=== PATIENT | female | born 1965 | race Caucasian/White ===

== ENCOUNTER → 2018-02-11 | Outpatient (CLI) | payer BC ==
--- NOTE | 2018-02-12 10:23 | MM ---
Reason for exam: screening (asymptomatic). Last mammogram was performed 1 year and 5 months ago. History: Patient has history of high-risk lesion on a previous biopsy at age 43 and is nulliparous. Family history of breast cancer in paternal aunt and breast cancer in paternal grandmother. Cancelled Right Mammotome of the right breast, May 11, 2011. Benign left breast needle localization of the left breast, July 27, 2009. High risk left mammotome panel of the left breast, July 13, 2009. High risk US left guided VAD of the left breast, July 13, 2009. Benign left mammotome panel of the left breast, September 05, 2007. Benign US right core biopsy of the right breast, May 07, 2006. Physical Findings: A clinical breast exam by your physician is recommended on an annual basis and results should be correlated with mammographic findings. MG Screening Mammo w CAD Bilateral CC and MLO view(s) were taken. Prior study comparison: August 29, 2016, bilateral MG screening mammo w CAD. January 05, 2015, bilateral MG work up mamm w CAD BILAT. The breast tissue is extremely dense which could obscure a lesion on mammography. There are typically benign round calcifications in both breasts. Previous mammotome biopsy in the right breast and left breast x 2. Focal asymmetry right posterior upper outer quadrant. This finding is changed when compared with previous exams. ASSESSMENT: Incomplete: need additional imaging evaluation, BI-RAD 0 RECOMMENDATION: Special view mammogram of the right breast. If lesion persists on supplemental views, image directed ultrasound is recommended. [facility] will attempt to contact patient to return for supplemental views and ultrasound if indicated.
== END | disposition home or self-care (01) ==
LOC: RADMAMWWP 07:26
PROVIDERS: ATTEND Obstetrics & Gynecology
DX: Z12.31 Encounter for screening mammogram for malignant neoplasm of breast (principal); R92.2 Inconclusive mammogram; Z80.3 Family history of malignant neoplasm of breast
CPT/HCPCS: 77067

== ENCOUNTER → 2018-02-17 | Outpatient (CLI) | payer BC ==
--- NOTE | 2018-02-17 09:20 | MM ---
Reason for exam: additional evaluation requested from abnormal screening. Last mammogram was performed less than 1 month ago. History: Patient has history of high-risk lesion on a previous biopsy at age 43 and is nulliparous. Family history of breast cancer in paternal aunt at age 60 and breast cancer in paternal grandmother at age 60. Cancelled Right Mammotome of the right breast, May 11, 2011. Benign left breast needle localization of the left breast, July 27, 2009. High risk left mammotome panel of the left breast, July 13, 2009. High risk US left guided VAD of the left breast, July 13, 2009. Benign left mammotome panel of the left breast, September 05, 2007. Benign US right core biopsy of the right breast, May 07, 2006. Taking estrogen for 2 years beginning at age 50. Taking other hormone for 2 years beginning at age 50. Physical Findings: Nurse Summary: 1cm nodule in the right breast at 9 o'clock (nurse mj). MG Work Up Mamm w CAD RT Spot compression CC, spot compression MLO, and ML view(s) were taken of the right breast. Prior study comparison: February 11, 2018, bilateral MG screening mammo w CAD. August 29, 2016, bilateral MG screening mammo w CAD. The breast tissue is heterogeneously dense. This may lower the sensitivity of mammography. Previous mammotome biopsy in the right breast. No distinct lesion persists but increased tissue is persistent. These results were verbally communicated with the patient and result sheet given to the patient on 02/17/18. ASSESSMENT: Incomplete: need additional imaging evaluation, BI-RAD 0 RECOMMENDATION: Ultrasound of the right breast. (upper outer quadrant post mammogram and palpable)
--- NOTE | 2018-02-17 09:22 | USB ---
Reason for exam: additional evaluation requested from abnormal screening. History: Patient has history of high-risk lesion on a previous biopsy at age 43 and is nulliparous. Family history of breast cancer in paternal aunt at age 60 and breast cancer in paternal grandmother at age 60. Cancelled Right Mammotome of the right breast, May 11, 2011. Benign left breast needle localization of the left breast, July 27, 2009. High risk left mammotome panel of the left breast, July 13, 2009. High risk US left guided VAD of the left breast, July 13, 2009. Benign left mammotome panel of the left breast, September 05, 2007. Benign US right core biopsy of the right breast, May 07, 2006. Taking estrogen for 2 years beginning at age 50. Taking other hormone for 2 years beginning at age 50. US Breast Workup Limited RT Right breast ultrasound demonstrates a 0.6 x 0.4 x 0.6cm lesion too small to characterize at 9 o'clock (increased through transmission) and a 0.5 x 0.3 x 0.4cm lesion too small to characterize at 10 o'clock. These results were verbally communicated with the patient and result sheet given to the patient on 02/17/18. ASSESSMENT: Probably benign, BI-RAD 3 RECOMMENDATION: Follow-up diagnostic mammogram and ultrasound of the right breast in 6 months.
== END | disposition home or self-care (01) ==
LOC: RADMAMWWP 07:36
PROVIDERS: ATTEND Obstetrics & Gynecology
DX: R92.8 Other abnormal and inconclusive findings on diagnostic imaging of breast (principal)
CPT/HCPCS: 77065

== ENCOUNTER → 2018-07-30 | Outpatient (CLI) | payer BC ==
--- NOTE | 2018-07-30 08:51 | XR ---
EXAMINATION TYPE: XR knee complete LT DATE OF EXAM: 07/30/2018 COMPARISON: NONE HISTORY: Chronic pain TECHNIQUE: Four views are submitted. FINDINGS: Narrowing of the medial compartment of the knee joint.. Osseous structures are intact. No acute fra cture seen. IMPRESSION: 1. Mild arthropathy.
== END | disposition home or self-care (01) ==
LOC: RADXRMAIN 07:41
PROVIDERS: ATTEND Family Medicine
DX: M17.12 Unilateral primary osteoarthritis, left knee (principal)

== ENCOUNTER → 2019-03-09 | Outpatient (CLI) | payer BC ==
--- NOTE | 2019-03-09 11:05 | MM ---
Reason for exam: additional evaluation requested from prior study. Last mammogram was performed 1 year and 1 month ago. History: Patient has history of high-risk lesion on a previous biopsy at age 43 and is nulliparous. Family history of breast cancer in paternal aunt at age 60 and breast cancer in paternal grandmother at age 60. Cancelled Right Mammotome of the right breast, May 11, 2011. Benign left breast needle localization of the left breast, July 27, 2009. High risk left mammotome panel of the left breast, July 13, 2009. High risk US left guided VAD of the left breast, July 13, 2009. Benign left mammotome panel of the left breast, September 05, 2007. Benign US right core biopsy of the right breast, May 07, 2006. Taking progesterone for 2 years. Taking other hormone for 2 years beginning at age 50. Physical Findings: Nurse did not find any significant physical abnormalities on exam. MG Diagnostic Mammo w CAD AMIRA Bilateral CC and MLO view(s) were taken. LM, XCCL, CC with magnification, and LM with magnification view(s) were taken of the right breast. Prior study comparison: February 17, 2018, right breast MG work up mamm w CAD RT. February 11, 2018, bilateral MG screening mammo w CAD. The breast tissue is heterogeneously dense. This may lower the sensitivity of mammography. Previous mammotome biopsy in the right breast x 1 and in the left breast x 2. New increasing heterogeneous grouped calcifications posterior upper outer quadrant. These results were verbally communicated with the patient and result sheet given to the patient on 03/09/19. ASSESSMENT: Suspicious, BI-RAD 4 RECOMMENDATION: Surgical consultation and stereotactic core biopsy of the right breast. Called Dr. Roth with mammographic findings and has scheduled an appointment for the patient for 04/16/19 at 11:[address] Cao. Biopsy scheduled for 04/02/19 at 10:20. PRELIMINARY REPORT CALLED AND FAXED TO DR. CAO ON 03/09/19.
--- NOTE | 2019-03-09 11:07 | USB ---
Reason for exam: follow-up at short interval from prior study. History: Patient has history of high-risk lesion on a previous biopsy at age 43 and is nulliparous. Family history of breast cancer in paternal aunt at age 60 and breast cancer in paternal grandmother at age 60. Cancelled Right Mammotome of the right breast, May 11, 2011. Benign left breast needle localization of the left breast, July 27, 2009. High risk left mammotome panel of the left breast, July 13, 2009. High risk US left guided VAD of the left breast, July 13, 2009. Benign left mammotome panel of the left breast, September 05, 2007. Benign US right core biopsy of the right breast, May 07, 2006. Taking progesterone for 2 years. Taking other hormone for 2 years beginning at age 50. US Breast RT Right complete breast ultrasound includes all four quadrants, the retroareolar region and axilla. Finding demonstrates two oval lymph node at the axilla tail with benign appearance measuring 10mm and 9mm. No solid or cystic lesion otherwise seen. These results were verbally communicated with the patient and result sheet given to the patient on 03/09/19. ASSESSMENT: Suspicious, BI-RAD 4 RECOMMENDATION: Surgical consultation and stereotactic core biopsy of the right breast. (calcifications) Called Dr. Roth with mammographic findings and has scheduled an appointment for the patient for 04/16/19 at 11:[address] Cao. Biopsy scheduled for 04/02/19 at 10:20. PRELIMINARY REPORT CALLED AND FAXED TO DR. CAO ON 03/09/19.
== END | disposition home or self-care (01) ==
LOC: RADMAMWWP 07:43
PROVIDERS: ATTEND Obstetrics & Gynecology
DX: R92.8 Other abnormal and inconclusive findings on diagnostic imaging of breast (principal)
CPT/HCPCS: 77066

== ENCOUNTER → 2019-04-02 | Day surgery (SDC) | payer BC ==
[2019-04-02 09:42] VITALS: RESP 16; BMI 35.0
[2019-04-02 11:53] VITALS: BP 155/77; PULSE 85; TEMP 97.9
--- NOTE | 2019-04-02 13:07 | MM ---
EXAMINATION TYPE: MG stereo VAD BX RT DATE OF EXAM: 04/02/2019 COMPARISON: Prior mammogram March 09, 2019 and older studies. CLINICAL HISTORY: Abnormal mammogram. TECHNIQUE: Stereotactic guided core biopsy of right breast with clip placement and follow-up two-view mammogram. FINDINGS: The procedure of stereotactic guided core biopsy was explained to the patient. Benefits, alternatives, and risks were discussed. An informed consent was then obtained. [facility] was [facility]. Shortness pathway was lateral approach. I performed the localization, then performed the remainder of the procedure. Overlying skin is cleansed. Lidocaine with bicarbonate is used as anesthetic into the skin. Lidocaine with epinephrine is used as anesthetic into the deeper tissue. A vacuum assisted biopsy gun was used to obtain multiple core samples. The patient tolerated the procedure well without any immediate complication. The patient was kept in the radiology department for short stay after the procedure and then discharged home in stable condition. Targeted calcifications are identified in specimen mammogram. Post biopsy mammogram shows the clip to appear in satisfactory position relative to the targeted area of concern on the preprocedure images. Some residual calcifications are present seen best on the lateral view. IMPRESSION: SUCCESSFUL, UNCOMPLICATED STEREOTACTIC GUIDED CORE BIOPSY OF AREA OF CONCERN IN THE RIGHT BREAST, FULL PATHOLOGY RESULTS TO FOLLOW. 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 See Cancer Case Summary. 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 Recommendation Surgical consult of the right breast. Needle Localization/definitive surgical management. MTDD
== END | disposition home or self-care (01) ==
LOC: RADMAMWWP 09:13
PROVIDERS: ATTEND Surgery
DX: C50.411 Malignant neoplasm of upper-outer quadrant of right female breast (principal); Z17.0 Estrogen receptor positive status [ER+]
CPT/HCPCS: 88305; 88342; 88341; 19081; A4648; J2001

== ENCOUNTER → 2019-04-24 | Outpatient (CLI) | payer BC ==
--- NOTE | 2019-04-24 10:35 | BMR ---
EXAMINATION TYPE: MR breast BILAT wo/w con DATE OF EXAM: 04/24/2019 COMPARISON: Bilateral diagnostic breast mammogram March 09, 2019 BI-RADS 4 and older mammograms. Righ t breast ultrasound March 09, 2019 BI-RADS 4 based on same day mammogram and older ultrasounds. HISTORY: Right-sided Breast Ca on stereotactic guided core biopsy April 02, 2019, infiltrating grade 2 a denocarcinoma. History of high risk left breast biopsy 2008. CONTRAST: Multiplanar, multisequence images of the breasts were acquired utilizing 10 mL intravenous Gadavist g adolinium contrast. TECHNIQUE: A series of fat and water weighted images in the long and short axis views of both breasts are obtained in conjunction with dynamic contrast MRI with subtraction technique. Three-dimensional and additional postprocessing imaging is created on independent workstation and reviewed during offi cial interpretation of this study. FINDINGS: There is heterogeneously dense fibroglandular tissue redemonstrated throughout both breasts . There are small thin-walled cysts scattered throughout the bilateral breasts more prominent in the left breast outer aspect. Benign-appearing bilateral axillary lymph nodes are identified. Chest wall is intact bilaterally. Dynamic postcontrast images show moderate to marked fairly symmetric backgroun d enhancement making evaluation slightly suboptimal with slightly more prominent lateral glandular en hancement in the left breast. With regards to the left breast there is no suspicious masses or pathologic enhancement. With regards to the right breast there is new artifact from biopsy clip in the right breast correspon ding to site of recent stereotactic guided core biopsy axial image 18 series 301 and the posterior de pth outer portion of the right breast roughly 9:00 position there is a 2.8 x 1.8 cm area of masslike enhancement that shows uptake with washout on dynamic postcontrast images with artifact from biopsy c lip in the anterior portion of this area approximately 11 cm distance from nipple that corresponds to area of recent biopsy proven carcinoma. Immediately inferior and medial to this approximately 2 to 3 cm away there is a second smaller area o f masslike enhancement measuring 1.5 x 0.8 cm seen best image 158 series 701 outer slight lower quadr ant roughly 10 position middle depth approximately 6 to 7 cm from the nipple that shows uptake and wa shout on dynamic postcontrast images. IMPRESSION: BI-RADS 2 benign findings left breast. BI-RADS 6 biopsy-proven carcinoma right breast. Second area of concern right breast noted. No obvious correlate on recent mammogram or ultrasound. Advise second look ultrasound. If ultrasound is negativ e. Advise MRI guided biopsy.
== END | disposition home or self-care (01) ==
LOC: RADMRIMAIN 06:33
PROVIDERS: ATTEND Surgery
DX: C50.919 Malignant neoplasm of unspecified site of unspecified female breast (principal)
CPT/HCPCS: 77049; C8937; A9585

== ENCOUNTER → 2019-05-01 | Outpatient (CLI) | payer BC ==
--- NOTE | 2019-05-01 12:38 | USB ---
Reason for exam: additional evaluation requested from prior study. History: Patient has history of breast cancer at age 53, has history of high-risk lesion on a previous biopsy at age 43, and is nulliparous. Family history of breast cancer in paternal aunt at age 60 and breast cancer in paternal grandmother at age 60. Malignant MG stereo VAD BX RT of the right breast, April 02, 2019. Cancelled Right Mammotome of the right breast, May 11, 2011. Benign left breast needle localization of the left breast, July 27, 2009. High risk left mammotome panel of the left breast, July 13, 2009. High risk US left guided VAD of the left breast, July 13, 2009. Benign left mammotome panel of the left breast, September 05, 2007. Benign US right core biopsy of the right breast, May 07, 2006. Taking progesterone for 2 years. Taking other hormone for 2 years beginning at age 50. Physical Findings: Nurse Summary: 2cm palpable lump (nurse kp). US Breast RT Right complete breast ultrasound includes all four quadrants, the retroareolar region and axilla. Finding demonstrates no sonographic correlate. Subcentimeter mass at 7 o'clock appears as a cyst sonographically. These results were verbally communicated with the patient and result sheet given to the patient on 05/01/19. ASSESSMENT: Suspicious, BI-RAD 4 RECOMMENDATION: MRI-guided biopsy of the right breast. PRELIMINARY REPORT CALLED AND FAXED TO DR. FOFANA ON 05/01/19.
== END ==
LOC: RADUSWWP 10:08
PROVIDERS: ATTEND Surgery
DX: C50.911 Malignant neoplasm of unspecified site of right female breast (principal)

== ENCOUNTER → 2019-05-18 | Day surgery (SDC) | payer BC ==
[2019-05-18 08:50] VITALS: RESP 18; TEMP 98
[2019-05-18 08:58] VITALS: BP 119/76; PULSE 86
--- NOTE | 2019-05-19 17:21 | MM ---
EXAMINATION TYPE: MG diagnostic mammo RT wo CAD, MR breast biopsy w/vad RIGHT DATE OF EXAM: 05/18/2019 COMPARISON: MRI dated 04/24/2019, right breast ultrasound dated 05/01/2019 and diagnostic exam dated 03/09/2019. HISTORY: Biopsy-proven grade 2 infiltrating ductal carcinoma in a background of high-grade ductal carcinoma in situ with comedoform necrosis. TECHNIQUE: Pre and postcontrast sagittal imaging of the right breast was performed. The patient was injected with 10 mL intravenous Gadavist gadolinium contrast. Additional postprocessing imaging is created on independent workstation and reviewed during the biopsy. FINDINGS: PREPROCEDURAL CONSULTATION: Following a discussion of the risks, benefits, and alternatives of the procedure, informed consent was obtained. The patient identified herself by both her name and date and indicated that the right breast was the area of concern. Prior to the procedure, an audible timeout was done to verify patient identification, site and type of procedure. The right breast was marked prior to the procedure. PROCEDURE: The patient was placed on the MRI scanner within the breast coil with mild compression on the right breast. T1 weighted axial images were obtained before and after administration of IV contrast. The enhancing area of concern was identified. The CAD Stream software program was used to localize the enhancing area of concern. The patient was taken out of the scanner and the skin was sterilely prepped. 10 mL of buffered 1% lidocaine was injected subcutaneously and then into the deeper tissues. Subsequently, a trochar and sheath were advanced into the breast at the designated depth. The trochar was removed and a plastic stylet was placed into the sheath and the patient was placed back into the scanner. T1 weighted images were again obtained. The stylet tip was in good position in relation to the area of concern. The stylet was removed and the 9-guage vacuum-assisted needle was placed into the sheath. 9 tissue core specimens were obtained. The biopsy needle was removed and a metallic clip was placed into the biopsy site. T1 weighted fat saturation images were then obtained demonstrating satisfactory location of the biopsy marking clip. The patient was then taken out of the scanner and hemostasis was achieved with manual compression. A sterile dressing was applied at the site of biopsy. The patient tolerated the procedure without difficulty. Pathology specimens were labeled with patient identifiers and then sent to the pathology department. A post biopsy mammogram demonstrates satisfactory placement of the biopsy biopsy marker The patient experienced no complications during the procedure within the expected small postprocedural hematoma at the site of biopsy. Home-going/follow-up instructions were reviewed with the patient before she left the department. IMPRESSION: Status post MRI guided vacuum-assisted core needle biopsy of right breast mass followed by placement of tissue marker. Pathology and an addendum are pending. Pathology Results: Malignant RIGHT BREAST, NEEDLE CORE BIOPSIES: Infiltrating duct carcinoma, grade 3 of 3 occupying about 40% of tissue volume. See Surgical Pathology Cancer Case Summary. An e-cadherin stain, interpreted with appropriate controls, is diagnostic of infiltrating ductal carcinoma. Recommendation Surgical consult of the right breast. SRAVANTHID
== END ==
LOC: RADMRIMAIN 08:15
PROVIDERS: ATTEND Surgery
DX: C50.811 Malignant neoplasm of overlapping sites of right female breast (principal); Z17.0 Estrogen receptor positive status [ER+]
CPT/HCPCS: 19085; 88305; 88342; 88341; 77065; A4648; A9585

== ENCOUNTER → 2019-07-23 | Outpatient (CLI) | payer BC ==
--- NOTE | 2019-07-23 11:23 | CT ---
EXAMINATION TYPE: CT ChestAbdPelvis w con DATE OF EXAM: 07/23/2019 COMPARISON: None. HISTORY: Right breast cancer newly diagnosed with bilateral mastectomies and right axillary lymph nod e dissection CT DLP: 3561.8 mGycm. Automated Exposure Control for Dose Reduction was Utilized. CONTRAST: CT scan of the thorax, abdomen and pelvis is performed with oral and with IV Contrast, patient inject ed with 100 mL of Isovue 300. FINDINGS: LUNGS: The lungs are predominantly clear, there is no concerning parenchymal mass or nodule identifie d. There is no pleural effusion or pneumothorax seen. The tracheobronchial tree is patent. MEDIASTINUM: There are no greater than 1 cm hilar or mediastinal lymph nodes. No cardiomegaly or pe ricardial effusion is seen. OTHER: Breast expanders overlie the pectoralis muscles bilaterally. There is right axillary percutane ous drainage catheter. Along course of catheter there is a nonspecific 2.6 x 0.8 cm oval thin rim-enh ancing fluid collection presumed postsurgical seroma axial image 33. 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 LIVER/GB: Liver is diffusely low dense consistent with diffuse fatty infiltration. PANCREAS: No significant abnormality is seen. SPLEEN: No significant abnormality is seen. ADRENALS: No significant abnormality is seen. KIDNEYS: No significant abnormality is seen. BOWEL: The oral contrast reaches the level of the proximal transverse colon. No suspicious small or l arge bowel dilatation mild wall thickening sigmoid colon is present product of poor distention. Mild colitis cannot be excluded. GENITAL ORGANS: Anteverted uterus. Both ovaries normal in size, left slightly larger than right. LYMPH NODES: No greater than 1cm abdominal or pelvic lymph nodes are appreciated. OSSEOUS STRUCTURES: Some tiny scattered sclerotic foci bilateral hip joints represents coronal image 54 superior acetabulum favor benign bone islands. There is a transitional-type vertebra at lumbosacra l junction. This likely is shaped scoliotic curvature. There is degenerative change in both shoulders . Additional few tiny scattered sclerotic foci favor benign bone islands. No large destructive sclero tic or lytic lesion is present. OTHER: No significant additional abnormality is seen. IMPRESSION: No convincing evidence of metastatic disease. Postsurgical changes to the bilateral breas ts noted.
--- NOTE | 2019-07-23 15:34 | NM ---
EXAMINATION TYPE: NM bone scan whole body DATE OF EXAM: 07/23/2019 COMPARISON: CT scan 07/23/2019 HISTORY: Breast cancer Delayed whole-body scanning was performed following the injection of 24.8 mCi Tc 99m MDP. Images acq uired 5 hours post injection. FINDINGS: Abnormal uptake involving the knees, shoulders, sternoclavicular joints and feet likely post arthriti c. Vein uptake seen throughout the thoracic and lumbar spine is likely degenerative. IMPRESSION: 1. No diagnostic evidence of metastases
== END | disposition home or self-care (01) ==
LOC: RADCTMAIN 07:17
PROVIDERS: ATTEND Internal Medicine Hematology & Oncology
DX: C50.411 Malignant neoplasm of upper-outer quadrant of right female breast (principal); Z98.890 Other specified postprocedural states
CPT/HCPCS: 71260; 74177; 78306; A9503; Q9967

== ENCOUNTER → 2019-07-31 | Outpatient (CLI) | payer BC ==
--- NOTE | 2019-07-31 11:55 | ECHOF ---
Referral Reason:C50.411 Breast Cancer, Z01.818 [facility] MEASUREMENTS -------- HEIGHT: 170.2 cm WEIGHT: 99.8 kg BP: RVIDd: 2.1 cm (< 3.3) IVSd: 1.2 cm (0.6 - 1.1) LVIDd: 3.5 cm (3.9 - 5.3) LVPWd: 1.6 cm (0.6 - 1.1) IVSs: 1.8 cm LVIDs: 2.6 cm LVPWs: 1.5 cm Ao Diam: 2.4 cm (2.0 - 3.7) AV Cusp: 1.7 cm (1.5 - 2.6) LA Diam: 3.9 cm (2.7 - 3.8) MV EXCURSION: 15.673 mm (> 18.000) MV EF SLOPE: 59 mm/s (70 - 150) EPSS: 0.7 cm FINDINGS -------- Limited Study No Apicals or Subcostals: Do to Mastectomy of both Breast: Expanders in Breast. Apicals TDS; Drainage Tubes. The left ventricular size is normal. There is mild concentric left ventricular hypertrophy. Overa ll left ventricular systolic function is normal with, an EF between 55 - 60 %. The aortic root size is normal. There is no pericardial effusion. CONCLUSIONS -------- 1. Limited Study No Apicals or Subcostals: Do to Mastectomy of both Breast: Expanders in Breast. 2. Apicals TDS; Drainage Tubes. 3. The left ventricular size is normal. 4. There is mild concentric left ventricular hypertrophy. 5. Overall left ventricular systolic function is normal with, an EF between 55 - 60 %. 6. The aortic root size is normal. 7. There is no pericardial effusion. JOB PRINTER APPRENTICE: Kristin Valencia RDCS
== END | disposition home or self-care (01) ==
LOC: RADECHMAIN 10:23
PROVIDERS: ATTEND Internal Medicine Hematology & Oncology
DX: Z01.818 Encounter for other preprocedural examination (principal); C50.411 Malignant neoplasm of upper-outer quadrant of right female breast
CPT/HCPCS: 93308

== ENCOUNTER → 2020-01-06 | Outpatient (CLI) | payer BC ==
--- NOTE | 2020-01-07 09:13 | BD ---
EXAMINATION TYPE: Axial Bone Density DATE OF EXAM: 01/06/2020 COMPARISON: NONE CLINICAL HISTORY: 54 YR OLD FEMALE....ICD-10 CODE: Z79.890 POST MANOPAUSAL Height: 65 Weight: 204 FRAX RISK QUESTIONS: NOTHING TO NOTE HERE RISK FACTORS HISTORY OF: HX OF RT ELBOW, AND COCCYX AND TOES...ALL UNDER 50 YRS OLD Family History of Osteoporosis: YES, GR MO AND AUNT, NO HIP FX Postmenopausal woman: NOW, AT 53 YRS OLD Take estrogen and/or progesterone medications: TESTOSTERONE, IN THE PAST Hyperparathyroidism: NO Adrenal Insufficiency: NO MEDICATIONS: Thyroid Medications: YES, FLORIST DESIGNER THYROID, FOR ABOUT 3-4 YRS Additional Medications: HX OF CHEMO, JUST ENDED, VIT D, Additional History: HX OF BREAST CANCER, BILAT MASTECTOMIES, OSTEOARTHRITIS, EXAM MEASUREMENTS: Bone mineral densitometry was performed using the [employer] System. Bone mineral density as measured about the Lumbar spine is: ----- L1-L4(G/cm2): 1.434 T Score Values are as follows: ----- L1: 1.4 ----- L2: 1.6 ----- L3: 2.5 ----- L4: 2.7 ----- L1-L4: 2.1 Bone mineral density FIRST DEXA SCAN......BASELINE STUDY Bone mineral density about the R hip (g/cm2): 0.989 Bone mineral density about the L hip (g/cm2): 0.978 T Score values are as follows: -----R Neck: -0.3 -----L Neck: -0.1 -----R Total: -0.2 -----L Total: -0.2 Bone mineral density BASELINE DEXA STUDY FRAX%s: THERE IS A 9.5% CHANCE FOR A MAJOR OSTEOPOROTIC FX AND A 0.1% FOR HIP.....PROBABILITY FOR F X IN 10 YRS TIME IMPRESSION: Normal (Values between +1 and -1 indicate normal bone mass). Consider repeating this study in 5 year s or sooner if there is some new clinical indication. NOTE: T-SCORE=SD OF THE YOUNG ADULT MEAN.
== END | disposition home or self-care (01) ==
LOC: RADBDWWP 16:18
PROVIDERS: ATTEND Internal Medicine Hematology & Oncology
DX: N95.8 Other specified menopausal and perimenopausal disorders (principal); Z79.890 Hormone replacement therapy
CPT/HCPCS: 77080

== ENCOUNTER 2020-01-11 06:14 | Day surgery (SDC) | payer BC ==
[2020-01-06 14:53] VITALS: BMI 32.4
[~2020-01-11 06:14] MED LIST: DEXAMETHASONE SOD PHOSPHATE 10 MG/ML 1 ML VIAL IV ONE; HEPARIN SODIUM,PORCINE 5,000 UNIT/ML 1 ML VIAL SQ ONE; HYDROmorphone 0.5 MG/0.5 ML SYRINGE IVP PRN; LACTATED RINGERS 1,000 ML IV SCH; LIDOCAINE 1% 20 ML VIAL (10MG/ML) FOR IV START INTRADERMA PRN; MIDAZOLAM 2 MG/2 ML VIAL IV PRN; ONDANSETRON 4 MG/2 ML VIAL IVP ONE; fentaNYL (PF) 50 MCG/ML 2 ML AMP IV PRN
[2020-01-11 06:48] VITALS: TEMP 97.7
[2020-01-11] MEDS ORDERED: SCOPOLAMINE 1.5MG/72HR PATCH TRANSDERM ONE (07:07)
[2020-01-11] MEDS ORDERED: LIDOCAINE (PF) 10 MG/ML 5ML AMP SQ ONE ×2 (07:21→08:01)
--- NOTE | 2020-01-11 07:39 | P.GSHP ---
History of Present Illness H&P Date: 01/11/20 Chief Complaint: Right breast cancer 54-year-old female known to our office. Patient underwent previous bilateral mastectomy. Underwent Port-A-Cath placement for adjuvant chemotherapy. Patient recently completed her chemotherapy courses here today to have her port removed. No issues with the port. Past Medical History Past Medical History: Cancer, Osteoarthritis (OA), Thyroid Disorder Additional Past Medical History / Comment(s): Sinus issues. Hx right breast cancer 2019, 01/01/20 last chemo treatment, starting radiation 01/22/20. History of Any Multi-Drug Resistant Organisms: None Reported Past Surgical History: Breast Surgery, Uterine Ablation Additional Past Surgical History / Comment(s): BREAST BX-NEG, bilateral maste ctomy, lymph nodes removed, colonoscopy, port a catheter placement. Past Anesthesia/Blood Transfusion Reactions: Motion Sickness Past Psychological History: Depression Smoking Status: Former smoker Past Alcohol Use History: Rare Additional Past Alcohol Use History / Comment(s): SMOKING: STARTED IN 1979; QUIT IN 2004. Past Drug Use History: None Reported - Past Family History Mother Family Medical History: No Reported History Medications and Allergies Home Medications Medication Instructions Recorded Confirmed Type Thyroid,Pork [Silverware Supervisor Thyroid] 90 mg PO QAM 03/17/19 01/11/20 History Acetaminophen/Diphenhydramine 1 tab PO HS 01/06/20 01/11/20 History [Tylenol PM 500-25mg] Ascorbic Acid [Vitamin C] 500 mg PO DAILY 01/06/20 01/11/20 History Cholecalciferol [Vitamin D3 (25 1,000 unit PO DAILY 01/06/20 01/11/20 History Mcg = 1000 Iu)] Iodine 25 mg PO DAILY 01/06/20 01/11/20 History Multivitamins, Thera [Multivitamin 1 tab PO DAILY 01/06/20 01/11/20 History (formulary)] Pyridoxine [Vitamin B-6] 50 mg PO DAILY 01/06/20 01/11/20 History Allergies Allergy/AdvReac Type Severity Reaction Status Date / Time No Known Allergies Allergy Verified 01/11/20 06:35 Surgical - Exam Vital Signs Temp Pulse Resp BP Pulse Ox 97.7 F 88 18 132/65 95 01/11/20 06:44 01/11/20 06:44 01/11/20 06:44 01/11/20 06:44 01/11/20 06:44 Physical exam: General: Well-developed, well-nourished HEENT: Normocephalic, sclerae nonicteric Abdomen: Nontender, nondistended Extremities: No edema Neuro: Alert and oriented Assessment and Plan (1) Breast cancer Narrative/Plan: Will proceed with Port-A-Cath removal at this time. Current Visit: Yes Status: Acute Code(s): C50.919 - MALIGNANT NEOPLASM OF UNSP SITE OF UNSPECIFIED FEMALE BREAST SNOMED Code(s): 538136482
[2020-01-11] MEDS ORDERED: MIDAZOLAM 2 MG/2 ML VIAL ONE (07:47)
[2020-01-11] MEDS ORDERED: PROPOFOL 10 MG/ML 20 ML VIAL IV ONE (07:47)
[2020-01-11] MEDS ORDERED: fentaNYL (PF) 50 MCG/ML 2 ML AMP ONE (07:47)
[2020-01-11] MEDS ORDERED: LIDOCAINE 1% INJ 10MG/ML (20 ML MDV) SQ ONE (08:01)
[2020-01-11] MEDS ORDERED: HYDROcodone/APAP 5-325MG 1 EACH TAB PO PRN (08:20)
[2020-01-11] MEDS ORDERED: NALOXONE 0.4 MG/ML 1 ML VIAL IV PRN (08:20)
--- NOTE | 2020-01-11 08:21 | P.OP ---
Date of Procedure: 01/11/20 Procedure(s) Performed: PREOPERATIVE DIAGNOSIS: Right breast cancer POSTOPERATIVE DIAGNOSIS: Same PROCEDURE: Port-A-Cath removal SURGEON: Nash EBL: Minimal ANESTHESIA: Sedation COMPLICATIONS: None OPERATIVE PROCEDURE: Patient was placed in the supine position. The patient was sedated per anesthesia that time. The chest was prepped and draped in the usual sterile fashion. The skin was localized with Marcaine solution. The previous incision was re-incised using a scalpel. The port was easily excised using accommodation of blunt dissection sharp dissection and electrocautery. The subcutaneous tissues were reapproximated using 3-0 Vicryl sutures. The skin was reapproximated using 4-0 Monocryl sutures. Skin glue and sterile dressings were then applied. DISPOSITION: Stable to recovery room
[2020-01-11 08:24] VITALS: RESP 16
[2020-01-11 08:37] VITALS: BP 120/86; PULSE 88
== END 2020-01-11 08:55 | disposition home or self-care (01) ==
LOC: OR 06:14
PROVIDERS: ATTEND Surgery
DX: Z45.2 Encounter for adjustment and management of vascular access device (principal); C50.911 Malignant neoplasm of unspecified site of right female breast; M19.90 Unspecified osteoarthritis, unspecified site; E07.9 Disorder of thyroid, unspecified; Z92.21 Personal history of antineoplastic chemotherapy; Z90.13 Acquired absence of bilateral breasts and nipples; F32.9 Major depressive disorder, single episode, unspecified; Z87.891 Personal history of nicotine dependence; E66.9 Obesity, unspecified; Z68.32 Body mass index [BMI] 32.0-32.9, adult; Z79.890 Hormone replacement therapy; Z79.899 Other long term (current) drug therapy
CPT/HCPCS: 36590; J2250; J1644; J1100; J0690; J2405; J2001; J3010; J2704

== ENCOUNTER 2021-05-03 14:24 | Observation (INO) | payer BC ==
[2021-05-03 14:30] LABS: Glucose,Whole Blood 372 mg/dL (75-99)
[2021-05-03] MEDS ORDERED: SODIUM CHLORIDE 0.9% 1,000 ML IV STA (14:53)
--- NOTE | 2021-05-03 14:58 | ED ---
Recheck HPI - General Chief Complaint: Recheck/Abnormal Lab/Rx Stated Complaint: lab recheck Time Seen by Provider: 05/03/21 14:36 Source: patient Mode of arrival: ambulatory Limitations: no limitations - History of Present Illness Initial Comments: 55-year-old female presents to the emergency department with chief complaint of high blood sugar. Patient reports she was undergoing laboratory work prior to surgical procedure done a week from today. States she was unaware that this was fast and laboratory work, she ate prior to going in. They found her blood glucose to be 605. Patient states he advises to come to the emergency department for evaluation. The laboratory work was obtained and 9 AM this morning. States no history of diabetes and goes regularly to yearly physicals. Patient denies increased urinary frequency or urgency or dysuria. Denies hematuria, hematochezia or melena. Denies increased thirst. - Related Data Home Medications Medication Instructions Recorded Confirmed Thyroid,Pork [Corrective Therapy Aide Teacher Thyroid] 90 mg PO QAM 03/17/19 01/11/20 Acetaminophen/Diphenhydramine 1 tab PO HS 01/06/20 01/11/20 [Tylenol PM 500-25mg] Ascorbic Acid [Vitamin C] 500 mg PO DAILY 01/06/20 01/11/20 Cholecalciferol [Vitamin D3 (25 1,000 unit PO DAILY 01/06/20 01/11/20 Mcg = 1000 Iu)] Iodine 25 mg PO DAILY 01/06/20 01/11/20 Multivitamins, Thera [Multivitamin 1 tab PO DAILY 01/06/20 01/11/20 (formulary)] Pyridoxine [Vitamin B-6] 50 mg PO DAILY 01/06/20 01/11/20 Allergies Allergy/AdvReac Type Severity Reaction Status Date / Time No Known Allergies Allergy Verified 05/03/21 17:21 Review of Systems ROS Statement: Those systems with pertinent positive or pertinent negative responses have been documented in the HPI. ROS Other: All systems not noted in ROS Statement are negative. Past Medical History Past Medical History: Cancer, Thyroid Disorder History of Any Multi-Drug Resistant Organisms: None Reported Past Surgical History: No Surgical Hx Reported Additional Past Surgical History / Comment(s): BREAST BX-NEG, colonoscopy Past Anesthesia/Blood Transfusion Reactions: No Reported Reaction Past Psychological History: Bipolar, Depression Smoking Status: Former smoker Past Alcohol Use History: Rare Past Drug Use History: None Reported General Exam Limitations: no limitations General appearance: alert, in no apparent distress, obese Head exam: Present: atraumatic, normocephalic, normal inspection Eye exam: Present: normal appearance, PERRL, EOMI Pupils: Present: normal accommodation ENT exam: Present: normal exam, normal oropharynx, mucous membranes moist Neck exam: Present: normal inspection, full ROM. Absent: tenderness, lymphadenopathy Respiratory exam: Present: normal lung sounds bilaterally. Absent: respiratory distress, wheezes, rales, rhonchi, stridor Cardiovascular Exam: Present: regular rate, normal rhythm, normal heart sounds. Absent: systolic murmur GI/Abdominal exam: Present: soft. Absent: distended, tenderness, guarding, rebound Extremities exam: Present: normal inspection, full ROM, normal capillary refill. Absent: tenderness, pedal edema, joint swelling Back exam: Present: normal inspection, full ROM. Absent: tenderness, CVA tenderness (R), CVA tenderness (L) Neurological exam: Present: alert, oriented X3 Psychiatric exam: Present: normal affect, normal mood Skin exam: Present: warm, dry, intact, normal color Course Vital Signs 05/03/21 14:25 Temperature 98.6 F Pulse Rate 102 H Respiratory 18 Rate Blood Pressure 135/86 O2 Sat by Pulse 96 Oximetry Medical Decision Making - Medical Decision Making 55-year-old female presents to the emergency department with chief complaint of high blood sugar. Physical examination is unremarkable. Patient has a blood glucose 380. Double give her 8 units of Humalog based on her weight. Hemoglobin A1c pending. I spoke to Dr. Arnett who will like to admit the patient because this is a new onset diabetes. No DKA or HHS. Anion gap 13. Case discussed with Dr. Sepulveda. - Lab Data Result diagrams: 05/03/21 14:52 05/03/21 14:52 Lab Results 05/03/21 05/03/21 05/03/21 Range/Units 14:28 14:52 14:52 WBC 6.3 (3.8-10.6) k/uL RBC 5.54 H (3.80-5.40) m/uL Hgb 16.3 H (11.4-16.0) gm/dL Hct 46.9 H (34.0-46.0) % MCV 84.6 (80.0-100.0) fL MCH 29.4 (25.0-35.0) pg MCHC 34.7 (31.0-37.0) g/dL RDW 12.8 (11.5-15.5) % Plt Count 223 (150-450) k/uL MPV 7.4 Neutrophils % 56 % Lymphocytes % 35 % Monocytes % 5 % Eosinophils % 2 % Basophils % 1 % Neutrophils # 3.5 (1.3-7.7) k/uL Lymphocytes # 2.2 (1.0-4.8) k/uL Monocytes # 0.3 (0-1.0) k/uL Eosinophils # 0.1 (0-0.7) k/uL Basophils # 0.0 (0-0.2) k/uL Sodium (137-145) mmol/L Potassium (3.5-5.1) mmol/L Chloride (98-107) mmol/L Carbon Dioxide (22-30) mmol/L Anion Gap mmol/L BUN (7-17) mg/dL Creatinine (0.52-1.04) mg/dL Est GFR (CKD-EPI)AfAm (>60 ml/min/1.73 sqM) Est GFR (CKD-EPI)NonAf (>60 ml/min/1.73 sqM) Glucose (74-99) mg/dL POC Glucose (mg/dL) 372 H (75-99) mg/dL POC Glu Structural Steel Fitter ID Willing, Sheila Calcium (8.4-10.2) mg/dL Total Bilirubin (0.2-1.3) mg/dL AST (14-36) U/L ALT (4-34) U/L Alkaline Phosphatase (38-126) U/L Total Protein (6.3-8.2) g/dL Albumin (3.5-5.0) g/dL Urine Color Colorless Urine Appearance Clear (Clear) Urine pH 5.0 (5.0-8.0) Ur Specific [place] 1.031 (1.001-1.035) Urine Protein Negative (Negative) Urine Glucose (UA) 4+ H (Negative) Urine Ketones Trace H (Negative) Urine Blood Negative (Negative) Urine Nitrite Negative (Negative) Urine Bilirubin Negative (Negative) Urine Urobilinogen <2.0 (<2.0) mg/dL Ur Leukocyte Esterase Large H (Negative) Urine RBC 4 (0-5) /hpf Urine WBC 11 H (0-5) /hpf Ur Squamous Epith Cells 1 (0-4) /hpf Urine Mucus Rare H (None) /hpf Acetone, Qual (Negative) 05/03/21 Range/Units 14:52 WBC (3.8-10.6) k/uL RBC (3.80-5.40) m/uL Hgb (11.4-16.0) gm/dL Hct (34.0-46.0) % MCV (80.0-100.0) fL MCH (25.0-35.0) pg MCHC (31.0-37.0) g/dL RDW (11.5-15.5) % Plt Count (150-450) k/uL MPV Neutrophils % % Lymphocytes % % Monocytes % % Eosinophils % % Basophils % % Neutrophils # (1.3-7.7) k/uL Lymphocytes # (1.0-4.8) k/uL Monocytes # (0-1.0) k/uL Eosinophils # (0-0.7) k/uL Basophils # (0-0.2) k/uL Sodium 135 L (137-145) mmol/L Potassium 4.1 (3.5-5.1) mmol/L Chloride 100 (98-107) mmol/L Carbon Dioxide 22 (22-30) mmol/L Anion Gap 13 mmol/L BUN 14 (7-17) mg/dL Creatinine 0.40 L (0.52-1.04) mg/dL Est GFR (CKD-EPI)AfAm >90 (>60 ml/min/1.73 sqM) Est GFR (CKD-EPI)NonAf >90 (>60 ml/min/1.73 sqM) Glucose 380 H (74-99) mg/dL POC Glucose (mg/dL) (75-99) mg/dL POC Glu Structural Steel Fitter ID Calcium 10.0 (8.4-10.2) mg/dL Total Bilirubin 0.5 (0.2-1.3) mg/dL AST 41 H (14-36) U/L ALT 30 (4-34) U/L Alkaline Phosphatase 200 H (38-126) U/L Total Protein 7.7 (6.3-8.2) g/dL Albumin 4.7 (3.5-5.0) g/dL Urine Color Urine Appearance (Clear) Urine pH (5.0-8.0) Ur Specific [place] (1.001-1.035) Urine Protein (Negative) Urine Glucose (UA) (Negative) Urine Ketones (Negative) Urine Blood (Negative) Urine Nitrite (Negative) Urine Bilirubin (Negative) Urine Urobilinogen (<2.0) mg/dL Ur Leukocyte Esterase (Negative) Urine RBC (0-5) /hpf Urine WBC (0-5) /hpf Ur Squamous Epith Cells (0-4) /hpf Urine Mucus (None) /hpf Acetone, Qual Negative (Negative) Disposition Clinical Impression: Hyperglycemia Disposition: ADMITTED IP TO THIS HOSP Condition: Good Is patient prescribed a controlled substance at d/c from ED?: No Referrals: Isaiah Arnett MD [Primary Care Provider] - 1-2 days Time of Disposition: 17:25
[2021-05-03 15:27] LABS: Basophils % (A) 1 %; Eosinophils # (A) 0.1 k/uL (0-0.7); Eosinophils % (A) 2 %; HCT 46.9 % (34.0-46.0); HGB 16.3 gm/dL (11.4-16.0); Lymphocytes # (A) 2.2 k/uL (1.0-4.8); Lymphocytes % (A) 35 %; MCH 29.4 pg (25.0-35.0); MCHC 34.7 g/dL (31.0-37.0); MCV 84.6 fL (80.0-100.0); Mean Platelet Volume 7.4; Monocytes # (A) 0.3 k/uL (0-1.0); Monocytes % (A) 5 %; Neutrophils # (A) 3.5 k/uL (1.3-7.7); Neutrophils % (A) 56 %; Platelet Count 223 k/uL (150-450); RBC 5.54 m/uL (3.80-5.40); RDW 12.8 % (11.5-15.5); WBC 6.3 k/uL (3.8-10.6)
[2021-05-03 15:30] LABS: Appearance,Urine Clear (Clear); Bilirubin,Urine Negative (Negative); Blood,Urine Negative (Negative); Color,Urine Colorless; Glucose,Urine (UA) 4+ (Negative); Ketones,Urine Trace (Negative); Leukocyte Esterase,Urine Large (Negative); Mucus,Urine Rare /hpf; Nitrite,Urine Negative (Negative); Protein,Urine Negative (Negative); RBC,Urine 4 /hpf (0-5); Specific Gravity,Urine 1.031 (1.001-1.035); Squamous Epithelial Cell,Urine 1 /hpf (0-4); Urobilinogen,Urine <2.0 mg/dL (<2.0); WBC,Urine 11 /hpf (0-5)
[2021-05-03 15:39] LABS: ALT 30 U/L (4-34); AST 41 U/L (14-36); African American GFR (CKD) >90 (>60 ml/min/1.73 sqM); Albumin 4.7 g/dL (3.5-5.0); Alkaline Phosphatase 200 U/L (38-126); Anion Gap 13 mmol/L; Blood Urea Nitrogen 14 mg/dL (7-17); Carbon Dioxide 22 mmol/L (22-30); Chloride 100 mmol/L (98-107); Glucose 380 mg/dL (74-99); Non-African American GFR(CKD) >90 (>60 ml/min/1.73 sqM); Sodium 135 mmol/L (137-145); Total Bilirubin 0.5 mg/dL (0.2-1.3); Total Protein 7.7 g/dL (6.3-8.2)
[2021-05-03 15:40] LABS: Potassium 4.1 mmol/L (3.5-5.1)
[2021-05-03] MEDS ORDERED: ONDANSETRON 4 MG/2 ML VIAL IVP PRN (16:55)
[2021-05-03] MEDS ORDERED: NALOXONE 0.4 MG/ML 1 ML VIAL IV PRN (16:55)
[2021-05-03] MEDS ORDERED: LORazepam 2 MG/ML INJ IV PRN (16:55)
[2021-05-03] MEDS ORDERED: INSULIN REGULAR 100 UNIT/ML VIAL IV ONE (17:20)
[2021-05-03] MEDS: SODIUM CHLORIDE 0.9% 1,000 ML IV SCH (18:24)
[2021-05-03 18:40] VITALS: RESP 16
[2021-05-03 19:42] LABS: Glucose,Whole Blood 232 mg/dL (75-99)
[2021-05-03 21:55] LABS: Glucose,Whole Blood 342 mg/dL (75-99)
[2021-05-03 23:47] LABS: Glucose,Whole Blood 375 mg/dL (75-99)
[2021-05-04] MEDS ORDERED: ANASTROZOLE 1 MG TAB PO SCH (00:15)
[2021-05-04] MEDS: SODIUM CHLORIDE 0.9% 1,000 ML IV SCH (00:24)
[2021-05-04] MEDS: INSULIN ASPART (NovoLOG) 100 UNIT/ML VIAL SQ SCH ×3 (00:36→12:26)
[2021-05-04 04:54] LABS: Hemoglobin A1C 12.1 % (4.0-6.0)
[2021-05-04 05:39] VITALS: BP 99/66; PULSE 88; TEMP 97.6
[2021-05-04 07:06] LABS: Glucose,Whole Blood 267 mg/dL (75-99)
--- NOTE | 2021-05-04 08:18 | P.HPIM ---
History of Present Illness Chief Complaint: Hyperglycemia The patient is here with polyuria and polydipsia but blood sugar was quite elevated. She is been admitted for observation and place on sliding scale. The patient is doing quite well now and blood sugars in 200s. New-onset diabetes has been diagnosed and we will start diabetes education. Basal insulin will be started. Review of Systems Constitutional: Denies chills, Denies fever Eyes: denies blurred vision, denies pain Ears, nose, mouth and throat: Denies headache, Denies sore throat Cardiovascular: Denies chest pain, Denies shortness of breath Respiratory: Denies cough Gastrointestinal: Denies abdominal pain, Denies diarrhea, Denies nausea, Denies vomiting Musculoskeletal: Denies myalgias Past Medical History Past Medical History: Cancer, Thyroid Disorder Additional Past Medical History / Comment(s): Breast History of Any Multi-Drug Resistant Organisms: None Reported Past Surgical History: No Surgical Hx Reported Additional Past Surgical History / Comment(s): BREAST BX-NEG, colonoscopy Past Anesthesia/Blood Transfusion Reactions: No Reported Reaction Past Psychological History: Bipolar, Depression Additional Psychological History / Comment(s): USING COMPLIMETARY THERAPY (OILS) TO TREAT. Smoking Status: Former smoker Past Alcohol Use History: Rare Additional Past Alcohol Use History / Comment(s): SMOKING: STARTED IN 1979;QUIT IN 2004 Past Drug Use History: None Reported Medications and Allergies Home Medications Medication Instructions Recorded Confirmed Type Thyroid,Pork [Local Az Truck Driver Thyroid] 90 mg PO DAILY 03/17/19 05/03/21 History Ascorbic Acid [Vitamin C] 500 mg PO DAILY 01/06/20 05/03/21 History Cholecalciferol [Vitamin D3 (25 2,000 unit PO DAILY 01/06/20 05/03/21 History Mcg = 1000 Iu)] Iodine 12.5 mg PO DAILY 01/06/20 05/03/21 History Anastrozole 1 mg PO DIRECTED 05/03/21 05/03/21 History Cetirizine HCl [Zyrtec] 10 mg PO DAILY 05/03/21 05/03/21 History Olopatadine HCl [Pataday] 1 drop BOTH EYES BID 05/03/21 05/03/21 History Venlafaxine HCl ER [Effexor Xr] 75 mg PO DAILY 05/03/21 05/03/21 History cycloSPORINE 0.05% OPHTH SOLN 1 drop BOTH EYES BID 05/03/21 05/03/21 History [Restasis] Allergies Allergy/AdvReac Type Severity Reaction Status Date / Time No Known Allergies Allergy Verified 05/03/21 17:21 Physical Exam Vitals: Vital Signs Temp Pulse Pulse Resp BP BP Pulse Ox 05/04/21 05:38 97.6 F 88 16 99/66 96 05/04/21 00:00 98 F 87 16 118/75 93 L 05/03/21 18:38 91 16 132/85 97 05/03/21 14:25 98.6 F 102 H 18 135/86 96 Intake and Output 05/03/21 05/04/21 05/04/21 22:59 06:59 14:59 Intake Total 1300 Balance 1300 Intake: Intake, IV Titration 900 Amount Sodium Chloride 0.9% 1, 900 000 ml @ 75 mls/hr IV . [id number] [facility] Rx#:[id number] Oral 400 Other: Voiding Method Toilet # Voids 3 Weight 86.183 kg - Constitutional General appearance: obese - EENT Eyes: EOMI - Neck Neck: no lymphadenopathy - Respiratory Respiratory: bilateral: CTA - Cardiovascular Rhythm: regular Heart sounds: normal: S1, S2 Abnormal Heart Sounds: no S3 Gallop - Gastrointestinal General gastrointestinal: soft, no tenderness - Musculoskeletal Musculoskeletal: generalized weakness Results CBC & Chem 7: 05/03/21 14:52 05/03/21 14:52 Labs: Abnormal Lab Results - Last 24 Hours (Table) 05/03/21 05/03/21 05/03/21 Range/Units 14:28 14:52 14:52 RBC 5.54 H (3.80-5.40) m/uL Hgb 16.3 H (11.4-16.0) gm/dL Hct 46.9 H (34.0-46.0) % Sodium (137-145) mmol/L Creatinine (0.52-1.04) mg/dL Glucose (74-99) mg/dL POC Glucose (mg/dL) 372 H (75-99) mg/dL Hemoglobin A1c (4.0-6.0) % AST (14-36) U/L Alkaline Phosphatase (38-126) U/L Urine Glucose (UA) 4+ H (Negative) Urine Ketones Trace H (Negative) Ur Leukocyte Esterase Large H (Negative) Urine WBC 11 H (0-5) /hpf Urine Mucus Rare H (None) /hpf 05/03/21 05/03/21 05/03/21 Range/Units 14:52 14:52 19:40 RBC (3.80-5.40) m/uL Hgb (11.4-16.0) gm/dL Hct (34.0-46.0) % Sodium 135 L (137-145) mmol/L Creatinine 0.40 L (0.52-1.04) mg/dL Glucose 380 H (74-99) mg/dL POC Glucose (mg/dL) 232 H (75-99) mg/dL Hemoglobin A1c 12.1 H (4.0-6.0) % AST 41 H (14-36) U/L Alkaline Phosphatase 200 H (38-126) U/L Urine Glucose (UA) (Negative) Urine Ketones (Negative) Ur Leukocyte Esterase (Negative) Urine WBC (0-5) /hpf Urine Mucus (None) /hpf 05/03/21 05/03/21 05/04/21 Range/Units 21:53 23:46 07:04 RBC (3.80-5.40) m/uL Hgb (11.4-16.0) gm/dL Hct (34.0-46.0) % Sodium (137-145) mmol/L Creatinine (0.52-1.04) mg/dL Glucose (74-99) mg/dL POC Glucose (mg/dL) 342 H 375 H 267 H (75-99) mg/dL Hemoglobin A1c (4.0-6.0) % AST (14-36) U/L Alkaline Phosphatase (38-126) U/L Urine Glucose (UA) (Negative) Urine Ketones (Negative) Ur Leukocyte Esterase (Negative) Urine WBC (0-5) /hpf Urine Mucus (None) /hpf Microbiology - Last 24 Hours (Table) 05/03/21 14:52 Urine Culture - Preliminary Urine,Clean Catch Thrombosis Risk Factor Assmnt - Choose All That Apply Any of the Below Risk Factors Present?: Yes Each Factor Represents 1 point: Age 41-60 years Other Risk Factors: No Other congenital or acquired thrombophilia - If yes, enter type in comment: No Thrombosis Risk Factor Assessment Total Risk Factor Score: 1 Thrombosis Risk Factor Assessment Level: Low Risk Assessment and Plan (1) New onset type 2 diabetes mellitus Current Visit: Yes Status: Acute Code(s): E11.9 - TYPE 2 DIABETES MELLITUS WITHOUT COMPLICATIONS SNOMED Code(s): 19555668 Plan: Diabetes education. We'll start basal insulin. We'll anticipate discharge later this afternoon.
--- NOTE | 2021-05-04 08:22 | P.DS ---
Providers Date of admission: 05/03/21 18:05 Attending physician: Isaiah Arnett Primary care physician: Isaiah Arnett - Discharge Diagnosis(es) (1) New onset type 2 diabetes mellitus Current Visit: Yes Status: Acute Hospital Course: The patient was admitted essentially for new onset diabetes. Diabetes education was done she is placed on sliding scale will be discharged on basal insulin. The patient is tolerating diet and voiding without difficulty and has an underlying history of breast reconstruction scheduled and would like to get blood sugar well-controlled before this has to be done. Patient Condition at Discharge: Good Plan - Discharge Summary Discharge Rx Participant: No New Discharge Prescriptions: New Insulin Glargine,Hum.rec.anlog [Lantus Solostar] 20 unit SQ DAILY #2 pen Pen Needle, Diabetic [Ultra-Fine Original Pen Needle 12.7 mm (1/2") x 29G (BD)] 1 needle SQ DIRECTED #100 needle Continue Thyroid,Pork [Director Of Marketing Analytics Thyroid] 90 mg PO DAILY Iodine 12.5 mg PO DAILY Ascorbic Acid [Vitamin C] 500 mg PO DAILY Cholecalciferol [Vitamin D3 (25 Mcg = 1000 Iu)] 2,000 unit PO DAILY Cetirizine HCl [Zyrtec] 10 mg PO DAILY Olopatadine HCl [Pataday] 1 drop BOTH EYES BID Anastrozole 1 mg PO DIRECTED Venlafaxine HCl ER [Effexor XR] 75 mg PO DAILY cycloSPORINE 0.05% OPHTH SOLN [Restasis] 1 drop BOTH EYES BID Discharge Medication List Thyroid,Pork [Director Of Marketing Analytics Thyroid] 90 mg PO DAILY 03/17/19 [History] Ascorbic Acid [Vitamin C] 500 mg PO DAILY 01/06/20 [History] Cholecalciferol [Vitamin D3 (25 Mcg = 1000 Iu)] 2,000 unit PO DAILY 01/06/20 [History] Iodine 12.5 mg PO DAILY 01/06/20 [History] Anastrozole 1 mg PO DIRECTED 05/03/21 [History] Cetirizine HCl [Zyrtec] 10 mg PO DAILY 05/03/21 [History] Olopatadine HCl [Pataday] 1 drop BOTH EYES BID 05/03/21 [History] Venlafaxine HCl ER [Effexor XR] 75 mg PO DAILY 05/03/21 [History] cycloSPORINE 0.05% OPHTH SOLN [Restasis] 1 drop BOTH EYES BID 05/03/21 [History] Insulin Glargine,Hum.rec.anlog [Lantus Solostar] 20 unit SQ DAILY #2 pen 05/04/21 [Rx] Pen Needle, Diabetic [Ultra-Fine Original Pen Needle 12.7 mm (1/2") x 29G (BD)] 1 needle SQ DIRECTED #100 needle 05/04/21 [Rx] Follow up Appointment(s)/Referral(s): Isaiah Arnett MD [Primary Care Provider] - 3 Days Discharge Disposition: HOME SELF-CARE
[2021-05-04] MEDS ORDERED: CHOLECALCIFEROL 25 MCG (1000 IU) TABLET PO SCH (09:00)
[2021-05-04] MEDS ORDERED: THYROID, PORK 30 MG TAB PO SCH (09:00)
[2021-05-04] MEDS ORDERED: ASCORBIC ACID 500 MG TAB PO SCH (09:00)
[2021-05-04] MEDS ORDERED: KETOTIFEN 0.025% OPHTH DROPS 5 ML BTL BOTH EYES SCH (09:00)
[2021-05-04] MEDS ORDERED: LORATADINE 10 MG TAB PO SCH (09:00)
[2021-05-04] MEDS ORDERED: cycloSPORINE 0.05% OPHTH 0.4 ML DROPERETTE BOTH EYES SCH (09:00)
[2021-05-04] MEDS ORDERED: IODINE PO SCH (09:00)
[2021-05-04] MEDS ORDERED: VENLAFAXINE HCL ER 75 MG CAP PO SCH (09:00)
[2021-05-04] MEDS ORDERED: PANTOPRAZOLE 40 MG/10 ML VIAL IV SCH (09:00)
[2021-05-04 10:22] LABS: African American GFR (CKD) 118.9 (60.0-200.0); Albumin 3.8 g/dL (3.80-4.90); Albumin/Globulin Ratio 1.65 (1.60-3.17); BUN/Creat Ratio 16.67 Ratio (12.00-20.00); Globulin 2.3 g/dL (1.6-3.3); Non-African American GFR(CKD) 102.6 (60.0-200.0); Potassium 3.5 mmol/L (3.5-5.5); Total Bilirubin 0.5 mg/dL (0.3-1.2); Total Protein 6.1 g/dL (6.2-8.2)
[2021-05-04 11:46] LABS: Glucose,Whole Blood 242 mg/dL (75-99)
[2021-05-04 13:18] VITALS: BMI 29.7
== END 2021-05-04 12:50 | disposition home or self-care (01) ==
LOC: EC 14:24 → 6NMEDSUR 18:05 → 5NMEDONC 23:36
PROVIDERS: ADMIT Family Medicine; ATTEND Family Medicine
DX: E11.65 Type 2 diabetes mellitus with hyperglycemia (principal); E07.9 Disorder of thyroid, unspecified; F31.9 Bipolar disorder, unspecified; Z79.899 Other long term (current) drug therapy; Z85.3 Personal history of malignant neoplasm of breast; Z87.891 Personal history of nicotine dependence; Z98.890 Other specified postprocedural states
CPT/HCPCS: 96374; 99284; 36415; 80053 ×2; 82009; 85025; 81001; 87086; 83036; 87635; G0378 ×2; C9113

== ENCOUNTER → 2022-01-15 | Outpatient (CLI) | payer BC ==
--- NOTE | 2022-01-15 15:47 | BD ---
EXAMINATION TYPE: Axial Bone Density DATE OF EXAM: 01/15/2022 COMPARISON: NONE CLINICAL HISTORY: Height: 5 FT 6 1/2 IN Weight: 191 FRAX RISK QUESTIONS: Alcohol (3 or more units per day): NO Family History (Parent hip fracture): NO Glucocorticoids (More than 3mos): NO (Ex: prednisone, prednisolone, methylprednisolone, dexamethasone, and hydrocortisone). History of Fracture in Adulthood: YES Secondary Osteoporosis: 1. Type 1 Diabetes: NO 2. Hyperthyroidism: NO 3. Menopause before 45: NO 4. Malnutrition: NO 5. Chronic liver disease: NO Rheumatoid Arthritis: NO Current Tobacco Use: NO RISK FACTORS HISTORY OF: Surgery to Spine/Hip(right/left)/Wrist (right/left): NO Family History of Osteoporosis: YES Active: YES Diet low in dairy products/other sources of calcium: NO Postmenopausal woman: YES Take estrogen and/or progesterone medications: NO Lost more than 2 inches in height since high school: NO Frequent falls: NO Poor Health: GOOD Hyperparathyroidism: NO Adrenal Insufficiency: NO MEDICATIONS: Thyroid Medications: YES Which medication: RETAIL MERCHANDISING MANAGER THYROID How Long: APPRX FIVE YEARS Additional Medications: HORMONE ALEC, RETAIL MERCHANDISING MANAGER THYROID, METFORMIN, EFFEXOR, Additional History: AMIRA MAST 2019 CHEMO AND RADIATION EXAM MEASUREMENTS: Bone mineral densitometry was performed using the tidy System. Bone mineral density as measured about the Lumbar spine is: ----- L1-L4(G/cm2): 1.244 T Score Values are as follows: ----- L2: 0.4 ----- L3: 0.6 ----- L4: 1.0 ----- L1-L4: 0.5 Bone mineral density has: DECREASED -12.5 % since of: 2019 Bone mineral density about the R hip (g/cm2): 0.847 Bone mineral density about the L hip (g/cm2): 0.882 T Score values are as follows: -----R Neck: -1.4 -----L Neck: -1.1 -----R Total: -1.0 -----L Total: -1.1 Bone mineral density has: DECREASED -11.1 % since study of: 2019 IMPRESSION: Osteopenia (T Score between -2.5 and -1). There is slightly increased risk of fracture and the patient may be considered for treatment. Re-Screen 2-5 years. NOTE: T-SCORE=SD OF THE YOUNG ADULT MEAN.
== END | disposition home or self-care (01) ==
LOC: RADBDWWP 13:04
PROVIDERS: ATTEND Internal Medicine Hematology & Oncology
DX: M85.88 Other specified disorders of bone density and structure, other site (principal); Z79.890 Hormone replacement therapy
CPT/HCPCS: 77080

== ENCOUNTER → 2024-09-03 | Outpatient (CLI) | payer BC ==
--- NOTE | 2024-09-04 08:16 | BD ---
EXAMINATION TYPE: Axial Bone Density DATE OF EXAM: 09/03/2024 CLINICAL HISTORY: 58 years old Female. ICD-10 CODE: M81.0 OSTEOPENIA Height: 5 ft 6 1/2 in Weight: 187 FRAX RISK QUESTIONS: Alcohol (3 or more units per day): no Family History (Parent hip fracture): no Glucocorticoids (More than 3mos): no (Ex: prednisone, prednisolone, methylprednisolone, dexamethasone, and hydrocortisone). History of Fracture in Adulthood: yes Secondary Osteoporosis: 1. Type 1 Diabetes: no 2. Hyperthyroidism: no 3. Menopause before 45: yes 4. Malnutrition: no 5. 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 Bone mineral density as measured about the Lumbar spine is: ----- L1-L4(G/cm2): 1.337 T Score Values are as follows: ----- L1: -0.7 ----- L2: 0.9 ----- L3: 2.1 ----- L4: 2.0 ----- L1-L4: 1.3 Z Score Values are as follows: ----- L1: -0.2 ----- L2: 1.3 ----- L3: 2.5 ----- L4: 2.4 ----- L1-L4: 1.7 Bone mineral density has: increased 7.5 % since study of: 2021 Bone mineral density about the R hip (g/cm2): 0.904 Bone mineral density about the L hip (g/cm2): 0.930 T Score values are as follows: -----R Neck: -1.0 -----L Neck: -0.8 -----R Total: -0.7 -----L Total: -0.9 Z Score values are as follows: -----R Neck: -0.2 -----L Neck: 0.0 -----R Total: -0.3 -----L Total: -0.5 Bone mineral density has: increased 3.8 % since study of: 2021 FRAX%s: The graph provided illustrates a 13.2 % chance for a major osteoporotic fx and a 0.3 % chance for the hips probability for fx in 10 years time. IMPRESSION: Normal (Values between +1 and -1 indicate normal bone mass). Consider repeating this study in 5 year s or sooner if there is some new clinical indication. NOTE: T-SCORE=SD OF THE YOUNG ADULT MEAN. [facility], , 09/04/2024 8:13 AM
== END | disposition home or self-care (01) ==
LOC: RADBDWWP 16:13
PROVIDERS: ATTEND Internal Medicine Hematology & Oncology
DX: M81.0 Age-related osteoporosis without current pathological fracture
CPT/HCPCS: 77080